=== PATIENT | male | born 1950 | race Asian ===

== ENCOUNTER 2018-06-28 16:38 | Emergency (ER) | payer MEDICARE, OTHER ==
[~2018-06-28] VITALS: Ht 167.6 cm; Wt 74.0 kg
[2018-06-28 16:43] VITALS: Ht 167.6 cm; Wt 74.0 kg
[2018-06-28 21:21] VITALS: BP 110/69
== END 2018-06-28 21:21 | disposition home or self-care (01) ==
LOC: ED 16:38
DX: M54.42 Lumbago with sciatica, left side (principal)
CPT/HCPCS: J1885; Q0092